=== PATIENT | male | born 1960 | race Caucasian/White ===

== ENCOUNTER 2020-05-15 15:53 | Emergency (ER) | payer OTHER, SELFPAY ==
[2020-05-15] MEDS ORDERED: Lidocaine 1% w/Epinephrine 1:100K 20 ML VIAL ONE (16:12)
[2020-05-15] MEDS ORDERED: Sulfameth/Trimethoprim DS 800-160mg TAB ONE (16:39)
== END 2020-05-15 16:45 | disposition home or self-care (01) ==
LOC: BURERS 15:53
DX: L02.01 Cutaneous abscess of face (principal); R22.0 Localized swelling, mass and lump, head; E78.5 Hyperlipidemia, unspecified; I10 Essential (primary) hypertension; Z79.899 Other long term (current) drug therapy
CPT/HCPCS: 10060; 87070; 87077; 87186; 87205